=== PATIENT | female | born 1965 | race Caucasian/White ===

== ENCOUNTER → 2017-07-19 | Outpatient (CLI) | payer OTHER ==
[~2017-07-19] MED LIST: AMLO-110 PO; LISI40TA PO
--- NOTE | 2017-07-19 08:43 | DIAGNOSTIC IMAGING REPORT ---
SINUSES WITH BRAIN LAB CLINICAL HISTORY: 51 years-old Female presenting with CHRONIC SINUSITIS. TECHNIQUE: Multidetector CT of the sinuses was performed without the use of intravenous contrast. IV contrast: None. A dose lowering technique was used consistent with the principles of ALARA (as low as reasonably achievable). COMPARISON: None. CT DOSE (mGy.cm): The estimated cumulative dose is 269.19 mGycm. FINDINGS: Rocket Engine Tester topogram: Anterior cervical fusion hardware. Polypoid mucosal thickening in the left maxillary sinus. Paranasal sinuses and mastoid air cells otherwise clear. No sclerosis of the max or sinus velasquez to suggest chronic sinusitis. Minimal leftward deviation of the bony nasal septum. Ostiomeatal units patent bilaterally. Nasofrontal ethmoid recesses patent bilaterally. No dehiscence of the bony optic canals are carotid siphons. No significant anatomic variants. Orbits intact. Limited intracranial evaluation within normal limits. IMPRESSION: No current CT evidence of acute or chronic sinusitis. No significant anatomic variant. Electronically signed by: Gerald Dumont M.D. 07/19/2017 8:42 AM Dictated Date/Time: 07/19/2017 8:39 AM
== END | disposition home or self-care (01) ==
LOC: C.CTS 08:17
PROVIDERS: ATTEND Otolaryngology
DX: J32.9 Chronic sinusitis, unspecified (principal)

== ENCOUNTER → 2017-07-22 | Day surgery (SDC) | payer OTHER ==
[2017-07-21 09:05] VITALS: Ht 152.4 cm; Wt 98.2 kg
--- NOTE | 2017-07-21 12:35 | History and Physical: Surg Cnt ---
History & Physical Date Jul 21, 2017. Chief Complaint hoarseness History of Present Illness The patient is a 51 year old female with complaints of persistent hoarseness after neck surgery by Dr. Bingham Past Medical/Surgical History cerebral palsy Additional History Hepatic Disease: No Endocrine Disorder: No Kidney Disease: No Hypertension: No Heart Disease: No Bleeding Tendencies: No Infectious Diseases: No Allergies Coded Allergies: NO KNOWN DRUG ALLERGIES (Verified Allergy, Unknown, ., 07/21/17) Home Medications Scheduled Amlodipine (Norvasc), 5 MG PO QAM Lisinopril (Prinivil), 40 MG PO QAM Physical Examination Skin: warm/dry, no rash Eyes: normal inspection, EOMI, sclerae normal ENT: normal ENT inspection, pharynx normal Head: normocephalic, atraumatic Neck: supple, no adenopathy, trachea midline Respiratory/Chest: lungs clear, normal breath sounds, no respiratory distress Cardiovascular: regular rate, rhythm, no edema, no murmur Abdomen / GI: normal bowel sounds, non tender Back: normal inspection Extremities: normal inspection, normal range of motion Neurologic/Psych: no motor/sensory deficits, alert, normal reflexes, oriented x 3 Addiitonal Comments: voice is breathy and hoarse uses walker Diagnosis right vocal cord paralysis Plan of Treatment direct laryngoscopy, right vocal cord injection (with Radiesse gel)
[~2017-07-22] VITALS: Ht 152.4 cm; Wt 98.2 kg
[~2017-07-22] MED LIST changes: +ATROPINE SULFATE 0.1 MG/ML 5ML SYR IV PRN; +DEXAMETHASONE SOD INJ 4 MG/ML VIAL ONE; +EpHEDrine SULFATE INJ 50 MG/ML AMP IV PRN; +EpINEphrine HCL INJ 1 MG/ML 5ML SYRINGE ONE; +FENTANYL CITRATE INJ 50 MCG/1 ML 2 ML VIAL IV PRN; +FENTANYL CITRATE INJ 50 MCG/1 ML 2 ML VIAL ONE; +IBUPROFEN 600 MG TAB PO PRN; +KETOROLAC TROMETHAMINE 30 MG/ML VIAL IV. PRN; +LACTATED RINGER'S 1000ML 1,000 ML IV SCH; +LIDOCAINE HCL 2% 2 ML VIAL (20MG/ML) ONE; +MIDAZOLAM HCL 1 MG/ML 2ML VIAL ONE; +ONDANSETRON INJ 2 MG/ML 2 ML VIAL IV PRN; +ONDANSETRON INJ 2 MG/ML 2 ML VIAL ONE; +PROPOFOL IV EMULSION 10 MG/ML 20 ML VIAL IV ONE; +SODIUM CHLORIDE 0.9% 1000ML 1,000 ML IV SCH
--- NOTE | 2017-07-22 07:57 | History & Physical Bridge Note ---
H&P Re-Evaluation Bridge Note: I have examined the patient, reviewed the History & Physical and in the interval since the performance of the History & Physical I have noted the following changes of clinical significance: No changes noted
--- NOTE | 2017-07-22 13:31 | Discharge Instructions-SurgCtr ---
Discharge Instructions Date of Service Jul 22, 2017. Visit Reason for Visit: Right Vocal Cord Paralysis Discharge Discharge Diagnosis / Problem: same Discharge Goals Goal(s): Improve function Activity Recommendations Activity Limitations: resume your previous activity Anesthesia . Post Anesthesia Instructions: If you have had General Anesthesia or IV Sedation: * Do not drive today. * Resume driving when surgeon permits. * Do not make important decisions or sign legal documents today. * Call surgeon for: 1. Temperature elevations greater than 101 degrees F. 2. Uncontrollable pain. 3. Excessive bleeding. 4. Persistent nausea and vomiting. 5. Medication intolerance (nausea, vomiting or rash). * For nausea and vomiting use only clear liquids such as: tea, soda, bouillon until nausea subsides, then gradually increase diet as tolerated. * If you have any concerns or questions, call your surgeon's office. If physician is unavailable and it is an emergency, call 911 or go to the nearest emergency room. . Instructions / Follow-Up Instructions / Follow-Up No yelling, limited talking for 1 week Diet Recommendations Home Diet: no limitations Pending Studies Studies pending at discharge: no Medical Emergencies . Who to Call and When: Medical Emergencies: If at any time you feel your situation is an emergency, please call 911 immediately. . Non-Emergent Contact Non-Emergency issues call your: Primary Care Provider . . "Provider Documentation" section prepared by Negra Connell. . [place] Drug Monitoring Program Search Results: no issues identified
--- NOTE | 2017-07-22 13:49 | [facility] Post Operative Brief Note ---
Immediate Operative Summary Operative Date Jul 22, 2017. Pre-Operative Diagnosis Right Vocal Cord Paralysis Post-Operative Diagnosis same Procedure(s) Performed Direct Larygoscopy; Right Vocal Cord Injection with Prolaryn gel Surgeon Dr. Connell Data Governance Consultant Surgeon(s) none Estimated Blood Loss 3ML Findings Consistent with Post-Op Diagnosis Specimens none Drains None Anesthesia Type General Complication(s) none Disposition Accompanied Pt To Recovery: yes Disposition: Recovery Room / PACU
--- NOTE | 2017-07-22 14:49 | [facility] Operative Report ---
Operative Report Operative Date Jul 22, 2017. Pre-Operative Diagnosis Right Vocal Cord Paralysis Post-Operative Diagnosis same Procedure(s) Performed Direct Larygoscopy; Right Vocal Cord Injection with Prolaryn gel Surgeon Dr. Connell Heavy Machinery Operator Surgeon(s) none Estimated Blood Loss 3ML Specimens none Drains None Anesthesia Type General Complication(s) none Disposition yes Recovery Room / PACU Indications 51-year-old lady with right vocal cord paralysis status post cervical disc surgery Description of Procedure The patient was brought to the operating room and placed in the supine position. General endotracheal anesthesia was induced. The Dedo laryngoscope was used to visualize the endolarynx epiglottis vallecula and piriform sinus areas were normal. Suspension and microlaryngoscopy was performed. The right vocal cord was paralyzed. The right vocal cord was injected with a total of 1 mL of hyaluronic acid gel in 3 sites at the anterior, mid, and posterior positions lateral to the right true vocal cord. She tolerated procedure well was taken recovery area in satisfactory condition. I attest to the content of the Intraoperative Record and any orders documented therein. Any exceptions are noted below.
[2017-07-22 14:53] VITALS: TEMP 37.2
--- NOTE | 2017-07-22 15:07 | Anesthesia Progress Nt - [facility] ---
Anesthesia Post Op Note Date & Time Jul 22, 2017 at 15:07 Vital Signs Pain Intensity: 1 Vital Signs Past 12 Hours Date Time Temp Pulse Resp B/P (MAP) Pulse Ox O2 Delivery O2 Flow Rate FiO2 07/22/17 14:49 37.1 76 16 134/83 100 Room Air 07/22/17 14:46 75 18 07/22/17 14:46 73 18 100 07/22/17 14:45 146/95 07/22/17 14:42 141/93 07/22/17 14:41 73 18 07/22/17 14:41 73 18 100 07/22/17 14:40 148/95 07/22/17 14:40 37.1 71 18 141/93 100 Room Air 07/22/17 14:36 69 17 07/22/17 14:36 68 17 100 07/22/17 14:35 137/86 07/22/17 14:35 142/93 07/22/17 14:32 78 17 100 07/22/17 14:32 76 17 07/22/17 14:31 136/102 07/22/17 14:27 67 10 07/22/17 14:27 67 10 100 07/22/17 14:26 136/96 07/22/17 14:22 75 19 07/22/17 14:22 74 19 100 07/22/17 14:21 143/102 07/22/17 14:17 73 13 100 07/22/17 14:17 73 13 07/22/17 14:16 141/102 07/22/17 14:12 78 19 100 07/22/17 14:12 77 19 07/22/17 14:11 140/97 07/22/17 14:07 79 21 07/22/17 14:07 79 21 100 07/22/17 14:06 140/91 07/22/17 14:05 84 24 07/22/17 14:05 85 24 99 07/22/17 14:01 157/78 07/22/17 14:00 36.7 89 14 157/78 98 Humidified Oxygen 8 Mask 07/22/17 12:02 36.8 82 20 120/ (40) 99 Room Air Notes Mental Status: alert / awake / arousable, participated in evaluation Pt Amnestic to Procedure: Yes Nausea / Vomiting: adequately controlled Pain: adequately controlled Airway Patency, RR, SpO2: stable & adequate BP & HR: stable & adequate Hydration State: stable & adequate Anesthetic Complications: no major complications apparent
[2017-07-22 15:24] VITALS: BP 134/80; PULSE 71; O2SAT 98
== END | disposition home or self-care (01) ==
LOC: X.SURG 11:46
PROVIDERS: ATTEND Otolaryngology
DX: J38.01 Paralysis of vocal cords and larynx, unilateral (principal); R49.0 Dysphonia; G80.9 Cerebral palsy, unspecified; E66.9 Obesity, unspecified